=== PATIENT | male | born 1970 | race Caucasian/White ===

== ENCOUNTER 2021-01-06 14:01 | Emergency (ER) | payer OTHER, SELFPAY ==
--- NOTE | ~2021-01-06 | CT_ITS ---
EXAMINATION: CT BRAIN AND CT CERVICAL SPINE WITHOUT CONTRAST. CLINICAL INFORMATION: Status post fall with head strike., Dizziness and vomiting. COMPARISON: None TECHNIQUE: 5 mm thin axial and reformatted 2 mm thin sagittal and coronal images of brain were obtained. Axial 3 mm thin and reformatted 2 mm thin sagittal and coronal images of cervical spine were obtained. DLP 1070 mGy/cm FINDINGS: BRAIN: There is a very small left posterior fossa epidural hematoma on axial image 12/3 with overlying left occipital bone fracture. No additional areas of acute intra-axial, extra-axial bleed, masses, collection or midline shift. The lateral ventricles are symmetrical in size and configuration without enlargement. There is no acute infarction in evolution. The lateral ventricles are symmetrical in size and configuration without enlargement. Bone windows reveal a nondisplaced left occipital lobe fracture but no underlying scalp soft tissue hematoma or epidural hematoma.. Bilateral paranasal sinuses and mastoid air cells are well-aerated. ECA CERVICAL SPINE: There is normal cervical lordosis. The vertebral heights, alignment are normal. There is loss of C3-C4 disc level with mild ventral and posterior spondylosis. Rest of the disc levels are normal. The craniovertebral junction and C1-C2 alignment is normal. There is no visible acute fracture, dislocation or subluxation seen. CT/CT cervical spine wo con IMPRESSION: Mild left posterior fossa epidural hematoma with overlying left occipital lobe fracture. Mild degenerative disc changes C3-C4 disc level with spondylosis. No visible acute fracture, dislocation or lytic process seen. Results were called to Dr. Rita Louie by phone at 5:02 PM
--- NOTE | ~2021-01-06 | CT_ITS ---
EXAMINATION: CT BRAIN AND CT CERVICAL SPINE WITHOUT CONTRAST. CLINICAL INFORMATION: Status post fall with head strike., Dizziness and vomiting. COMPARISON: None TECHNIQUE: 5 mm thin axial and reformatted 2 mm thin sagittal and coronal images of brain were obtained. Axial 3 mm thin and reformatted 2 mm thin sagittal and coronal images of cervical spine were obtained. DLP 1070 mGy/cm FINDINGS: BRAIN: There is a very small left posterior fossa epidural hematoma on axial image 12/3 with overlying left occipital bone fracture. No additional areas of acute intra-axial, extra-axial bleed, masses, collection or midline shift. The lateral ventricles are symmetrical in size and configuration without enlargement. There is no acute infarction in evolution. The lateral ventricles are symmetrical in size and configuration without enlargement. Bone windows reveal a nondisplaced left occipital lobe fracture but no underlying scalp soft tissue hematoma or epidural hematoma.. Bilateral paranasal sinuses and mastoid air cells are well-aerated. ECA CERVICAL SPINE: There is normal cervical lordosis. The vertebral heights, alignment are normal. There is loss of C3-C4 disc level with mild ventral and posterior spondylosis. Rest of the disc levels are normal. The craniovertebral junction and C1-C2 alignment is normal. There is no visible acute fracture, dislocation or subluxation seen. CT/CT head/brain wo con IMPRESSION: Mild left posterior fossa epidural hematoma with overlying left occipital lobe fracture. Mild degenerative disc changes C3-C4 disc level with spondylosis. No visible acute fracture, dislocation or lytic process seen. Results were called to Dr. Rita Louie by phone at 5:02 PM
[2021-01-06 14:06] VITALS: BP 128/87; PULSE 96; RESP 18; TEMP 36.7; O2SAT 96; BMI 23.3
[2021-01-06 14:41] LABS: COVID-19 Test Negative (Negative); IDNOW Serial# 9DD0AD1C
--- NOTE | 2021-01-06 15:59 | ECG_ITS ---
Test Reason : DIZZINESS Blood Pressure : / mmHG Vent. Rate : 076 BPM Atrial Rate : 076 BPM P-R Int : 140 ms QRS Dur : 084 ms QT Int : 392 ms P-R-T Axes : 055 -05 057 degrees QTc Int : 441 ms Normal sinus rhythm Inferior infarct , age undetermined Possible Anterior infarct , age undetermined Abnormal ECG No previous ECGs available Referred By: Rita Louie Electronically Signed By:EPIFANIO DOMINGUEZ
--- NOTE | 2021-01-06 16:14 | ED_ITS ---
HPI - Fall General Chief Complaint: Fall Stated Complaint: fall Time Seen by Provider: 01/06/21 15:58 Source: patient and family Mode of arrival: ambulatory Limitations: no limitations History of Present Illness HPI Narrative: 50 y/o male with history of diabetes, HTN, HLD, CAD s/p CABG who presents to the ED with his family with headache, dizziness, light sensitivity, N/V since he fell 1 week ago. He reports he was moving items at his home last when he lost his footing, fell backward and hit his head on the cement. Fall was unwitnessed and he does not know if he lost consciousness or not. He held ice on the back of his head for 45 minutes with a pounding occipital headache. He is on baby aspirin but no anitcoagulation. Shortly after he developed dizziness, N/V, and headache persisted. He went to [facility] Sunday after where he reportedly had a normal neuro exam and was sent home. He states the next 3-4 days he stayed in bed with ongoing vomiting and inability to eat. Sunday he developed loss of sense of taste and smell. No fever or chills and he is fully vaccinated against COVID-19. His family got home from [place] early this week and his reports strange behaviors at night. He was reaching for cups that weren't there and talking to his father who 20+ years ago. His symptoms persisted this week and his family finally convinced him to come into the ER for evaluation. complaint: fall Onset (ago): day(s) (7) Fall from: standing Fall witnessed: no Place fall occurred: home Loss of consciousness: unsure Prolonged down time: no Symptoms prior to fall: none Context: tripped/slipped Location of injury: head (occipitial area) Severity: severe Severity scale (1-10): 6 Quality: aching and throbbing Associated symptoms (after fall): headache, lightheaded, confusion and other (N/V) Related Data Allergies Allergy/AdvReac Type Severity Reaction Status Date / Time No Known Allergies Allergy Verified 01/06/21 14:11 Review of Systems Constitutional: Constitutional: Denies chills, Reports difficulty sleeping, Denies fever(s), Denies frequent falls, Reports headache(s) and Reports weight loss (over 2 months lost 20+ lbs) Eyes: Eyes: Denies blurry vision, Denies change in vision, Denies diplopia, Denies irritation and Reports photophobia ENT: Reports Normal hearing present, Denies vertigo, Reports dizziness, Denies facial pain, Reports headache(s), Denies neck pain and Denies sore throat Cardiovascular: Cardiovascular: Denies chest pain, Reports lightheadedness and Denies dyspnea Respiratory: Respiratory: Denies cough and Denies dyspnea Gastrointestinal: Gastrointestinal: Denies abdominal pain, Denies constipation, Denies diarrhea, Reports nausea, Reports vomiting and Denies hematemesis Genitourinary: Genitourinary: Denies dysuria Musculoskeletal: Musculoskeletal: Reports myalgias and Denies neck pain Integumentary/Breasts: Skin/Breast: Denies rash Neurologic: Reports Normal hearing present, Reports behavioral changes, Denies vertigo, Reports dizziness, Denies frequent falls and Reports headache(s) Psychiatric: Psychiatric: Reports behavioral changes, Denies irritability and Denies paranoia Hematologic/Lymphatic: Hematologic/Lymphatic: Denies easy bleeding and Denies easy bruising PMFSH Past Medical History Attestation statement: The following information was validated with the patient. Medical History Cardiac complications Diabetes High cholesterol HTN (hypertension) Social History Social History Advance Directives: No Advance Directives Information Provided: No Physical Exam Vital Signs: Vital Signs: Last Vital Signs Temp 98.0 F 01/06/21 14:06 Pulse 80 01/06/21 17:35 Resp 18 01/06/21 17:35 BP 129/87 01/06/21 17:35 Pulse Ox 100 01/06/21 17:35 Body Mass Index 23.3 Appearance: Alert. Oriented X3. No acute distress. Head: occipital area with 4cm round patch of superficial light brown scabbing, no palpable scalp fracture or depression. Eyes: Pupils equal, round and reactive to light. EOMI, no nystagmus ENT: Pharynx normal. Normal bilateral TM's. No dental trauma. Neck: Normal inspection. Neck supple. No cervical spinal tenderness CVS: Normal heart rate and rhythm. Pulses normal. Respiratory: No respiratory distress. Breath sounds normal. Abdomen: Soft and nontender. +BS x4 Skin: Skin warm and dry. Normal skin color. Normal skin turgor. No rashes. Extremities: No lower extremity edema. Neuro: Oriented X 3. No motor deficit. No sensory deficit. Ambulates with slow but steady gait. Eyes: Direct Ophthalmoscopy: photophobia Neuro: Cranial nerves: Yes Normal hearing present Course Course Course Narrative: 50 y/o male with hx CM, CAD, HTN, HLD presenting with 7 days of N/V, headache, dizziness after fall with head strike. COVID negative. Non- focal neuro exam but his symptoms are concerning. Will get STAT CT head to r/o traumatic bleed or injury. Will also get EKG and basic labs given ongoing vomiti ng. He has no SOB or chest pain. Reevaluation(s) Reevaluation #1: Spoke with Dr. Garzon from Radiology - patient has an epidural hematoma and skull fracutre. [facility] called. Reevaluation #2: Spoke with Dr. Cerna from Trauma Surgery. Patient okay to transfer to [facility] ER with Trauma Consult. Spoke with the patient about the results and plan to transfer for Trauma and probable Neurosurgical evaluation. Consultations Consultation #1: [facility] ER MDM - Fall Lab Data Result diagrams: 01/06/21 17:16 01/06/21 17:16 Labs: Lab Results 01/06/21 01/06/21 Range/Units 14:12 17:29 POC Glucose 106 (60-115) mg/dL COVID-19 (ARABELLA) Negative (Negative) COVID-19 Clin Com See Note ECG Data Attestation: I personally reviewed and interpreted this ECG as follows: ECG interpretation date: 01/06/21 ECG interpretation time: 17:44 Prior ECG tracings: not available for review Interpretation: normal sinus rhythm, HR 76 bpm, Q waves present in leads II, III & aVF possible old inferior infarct. No ST segment elevations or depressions. Critical Care Time Critical Care Time Critical Care Time: Yes Total Critical Care Time: 45 Attestation: I have personally provided critical care time exclusive of time spent on separately billable procedures. Time includes review of lab data, radiology results, discussion with consultants, and monitoring for potential decompensation. Intervention performed as documented. Discharge Plan Discharge Clinical Impression: Traumatic epidural hematoma Qualifiers: Encounter type: initial encounter Loss of consciousness presence/duration: without LOC Qualified Code(s): S06.4X0A - Epidural hemorrhage without loss of consciousness, initial encounter Skull fracture Qualifiers: Encounter type: initial encounter Skull bone/location: occipital bone Fracture type: closed Occipital fracture type: unspecified fracture of occiput Lateral ity: left Qualified Code(s): S02.119A - Unspecified fracture of occiput, initial encounter for closed fracture Patient Disposition: [facility] Transfer Details: [facility]
[2021-01-06 17:09] VITALS: BP 127/90; BP 133/82; PULSE 82; PULSE 90
[2021-01-06 17:10] VITALS: BP 119/96; PULSE 104
[2021-01-06 17:18] VITALS: BP 127/90; PULSE 90; RESP 18; O2SAT 100
--- NOTE | 2021-01-06 17:21 | PC.NURSE ---
Patient is awake and alert. skin PWD, resp even and non labored, speaking in full, clear sentences. patients reports to the ED w/ n/v, dizziness, headache and bilateral eye pressure post fall one week ago. patient states that he fell backwards on concrete striking head, denies dizziness or chest pain prior to fall, states he thought he was going to trip over a toy. patient denies LOC at time of fall. IV established and labs obtained. Neuros intact. patient aware of head CT results and of plan of care for transfer to [facility]
[2021-01-06] MEDS: 0.9 % Sodium Chloride 1,000 ML 999 ML IVCONT (17:27)
[2021-01-06 17:29] LABS: MANUAL DIFF FLAG NO
[2021-01-06 17:34] LABS: Glucose, Whole Blood 106 mg/dL (60-115)
[2021-01-06 17:35] VITALS: BP 129/87; PULSE 80; RESP 18; O2SAT 100
[2021-01-06 17:44] LABS: Basophils Absolute Auto 0.1 X10*3/uL (0.0-0.2); Basophils Percent Auto 0.9 % (0-2); Eosinophils Absolute Auto 0.1 X10*3/uL (0.0-0.4); Eosinophils Percent Auto 1.3 % (0-4); Hematocrit 52.8 % (42-52); Hemoglobin 17.6 g/dl (14.0-18.0); Imm Gran Abs Auto 0.01 X10*3/uL (0.00-0.03); Imm Gran Pct Auto 0.1 % (0.0-0.4); Lymphocytes Absolute Auto 1.8 X10*3/uL (1.2-4.9); Lymphocytes Percent Auto 26.2 % (20-40); Mean Corpuscular HGB Conc 33.3 g/dl (31.0-36.0); Mean Corpuscular Hemoglobin 31.2 pg (27.0-33.0); Mean Corpuscular Volume 93.6 fL (80-98); Mean Platelet Volume 9.3 fL (9.4-12.4); Monocytes Absolute Auto 0.6 X10*3/uL (0.1-1.2); Monocytes Percent Auto 8.8 % (2-11); Neutrophils Absolute Auto 4.4 X10*3/uL (2.0-8.3); Neutrophils Percent Auto 62.7 % (45-73); Platelet Count 257 X10*3/uL (160-400); Red Blood Count 5.64 X10*6/uL (4.60-5.80); Red Cell Distribution Width 12.2 % (11.0-16.0)
[2021-01-06 18:06] LABS: Alanine Aminotransferase 21 U/L (0-40); Albumin Level 4.9 g/dL (3.5-5.0); Alkaline Phosphatase 67 U/L (39-117); Anion Gap 24 (12-20); Aspartate Amino Transferase 19 U/L (5-37); Bilirubin Direct 0.4 mg/dL (0.0-0.5); Blood Urea Nitrogen 21 mg/dL (9-16); Calcium 10.2 mg/dL (8.4-10.2); Carbon Dioxide 21 mmol/L (22-29); Chloride 99 mmol/L (96-108); Creatinine Clr Calc Pharmacy 89.3; Estimated Glomerular Filt Rate > 60; Glucose Random 90 mg/dL (60-115); Potassium 4.8 mmol/L (3.3-5.1); Sodium 139 mmol/L (135-145); Total Protein 8.9 g/dL (6.5-8.0)
--- NOTE | 2021-01-06 18:20 | PC.NURSE ---
Report given to Andrea WILKINSON at [facility]
[2021-01-06 18:37] LABS: Influenza A PCR NEGATIVE (Negative); Influenza B PCR NEGATIVE (Negative); Resp Syncy Virus RNA Qual PCR NEGATIVE (Negative); SARS COV2 PCR INHOUSE NEGATIVE (Negative)
== END 2021-01-06 18:22 | disposition short-term general hospital (02) ==
PROVIDERS: Physician Assistant; Emergency Provider Emergency Medicine Emergency Medical Services; PCP Hospitalist
DX: S06.4X0A Epidural hemorrhage without loss of consciousness, initial encounter (principal); S02.119A Unspecified fracture of occiput, initial encounter for closed fracture; W01.198A Fall on same level from slipping, tripping and stumbling with subsequent striking against other object, initial encounter; R51.9 Headache, unspecified; I10 Essential (primary) hypertension; E78.5 Hyperlipidemia, unspecified; Z20.822 Contact with and (suspected) exposure to COVID-19; Y93.E6 Activity, residential relocation; Y92.018 Other place in single-family (private) house as the place of occurrence of the external cause; Y99.9 Unspecified external cause status
CPT/HCPCS: 0241U; 36415; 70450; 72125; 80048; 80076; 82947; 83735; 85025; 87635; 93005; 96360; 99284; 99285; 99291